=== PATIENT | male | born 1980 | race Caucasian/White ===

== ENCOUNTER 2021-04-26 21:55 | Emergency (ER) | payer OTHER ==
[~2021-04-26] VITALS: Ht 175.3 cm; Wt 91.6 kg
[2021-04-26 22:00] VITALS: BP_SYST 146
[2021-04-26] MEDS: HYDROcodone/ACETAMIN 5-325 MG TAB (NORCO/ VICODIN) PO ONE ×2 (22:33→22:45)
[2021-04-26] MEDS ORDERED: IBUP-1970 PO (23:23)
[2021-04-26] MEDS ORDERED: PRO40 PO (23:23)
[2021-04-27 00:03] VITALS: BP_SYST 137
== END 2021-04-27 00:04 | disposition home or self-care (01) ==
LOC: SED 21:55
DX: S86.012A Strain of left Achilles tendon, initial encounter (principal); X50.0XXA Overexertion from strenuous movement or load, initial encounter; Y93.89 Activity, other specified; Y92.89 Other specified places as the place of occurrence of the external cause; Y99.8 Other external cause status
CPT/HCPCS: 73700-TC; 76376; 99284